=== PATIENT | male | born 1985 | race American Indian/Alaskan Native ===

== ENCOUNTER 2020-08-15 04:46 | Emergency (ER) | payer SELFPAY ==
--- NOTE | 2020-08-15 04:53 | Event Note ---
Date: 08/15/20 The patient was evaluated in the emergency department for symptoms described in the history of present illness. He/she was evaluated in the context of the global COVID-19 pandemic, which necessitated consideration that the patient might be at risk for infection with the virus that causes COVID-19. Institutional protocols and algorithms that pertain to the evaluation of patients at risk for COVID-19 are in a state of rapid change based on information released by regulatory bodies including the CDC and federal and state organizations. These policies and algorithms were followed during the patient's care in the emergency department. Please note that these policies, procedures and recommendations changed on a rapid basis. EMS documentation not available at time of chart dictation 34-year-old gentleman brought to the hospital by emergency medical services with a complaint of chest pain. Somewhat hypertensive in the field, but not tachycardic or hypoxic. Given nitroglycerin in the field. This improved symptoms. Patient resting comfortably down, in stretcher. Place on lpn cma, obtain EKG, x-ray the chest, appropriate laboratory studies, reassess.
--- NOTE | 2020-08-15 05:16 | XRay Report ---
XR chest 1V ap INDICATION / CLINICAL INFORMATION: chest pain COMPARISON: None available. FINDINGS: SUPPORT DEVICES: None. HEART / MEDIASTINUM: No significant abnormality. LUNGS / PLEURA: Lungs are clear. Costophrenic sulci are sharp. No pneumothorax. ADDITIONAL FINDINGS: No significant additional findings. IMPRESSION: 1. No acute findings. Signer Name: Yann Biswas MD Signed: 08/15/2020 5:12 AM Workstation Name: [id number]
[2020-08-15 05:38] LABS: Hematocrit 39.8 % (35.5-45.6); Hemoglobin 13.5 gm/dl (11.8-15.2); Mean Corpuscular HGB Conc 34 % (32-34); Mean Corpuscular Volume 88 fl (84-94); Platelet Count 216 K/mm3 (140-440); Red Blood Count 4.55 M/mm3 (3.65-5.03); Red Cell Distribution Width 14.4 % (13.2-15.2)
[2020-08-15 06:02] LABS: BUN/Creatinine Ratio 12; Blood Urea Nitrogen 13 mg/dL (9-20); Calcium 9.2 mg/dL (8.4-10.2); Hemolysis Index 3
[2020-08-15] MEDS ORDERED: MAGNESIUM SULFATE 2 GM/50 ML BAG IV ONE (06:52)
--- NOTE | 2020-08-15 07:19 | Emergency Department Report ---
HPI - General Chief Complaint: Chest Pain Time Seen by Provider: 08/15/20 06:52 - HPI HPI: Room 25 The patient is a 34-year-old male present with a chief complaint of chest pain. The patient states for the past 4 days he has had a constant substernal chest soreness. Patient states sometimes movement causes the pain. Patient admits to shortness of breath with the chest pain but denies nausea/vomiting or diaphoresis. Patient denies cough, fever or pleurisy. Patient denies any recent flights or long car trips. The patient states he is never had a stress test or cardiac catheterization ED Past Medical Hx - Past Medical History Previous Medical History?: Yes Hx Hypertension: Yes (noncompliant) Hx GERD: Yes Additional medical history: Anxiety - Surgical History Past Surgical History?: No - Family History Family history: no significant - Social History Smoking Status: Former Smoker (None x7 years) Substance Use Type: Alcohol (Occasional) - Medications Home Medications: Home Medications Medication Instructions Recorded Confirmed Last Taken Type Azithromycin [Zithromax Z-TIA] 0 mg PO DAILY #1 pack 02/08/16 Unknown Rx Cetirizine HCl [ZyrTEC] 10 mg PO DAILY #20 capsule 02/08/16 Unknown Rx predniSONE [Deltasone] 40 mg PO QDAY #10 tab 02/08/16 Unknown Rx Ibuprofen [Motrin 800 MG tab] 800 mg PO Q8HR PRN #20 tablet 08/15/20 Unknown Rx traMADoL [Ultram] 50 mg PO Q6HR PRN #14 tablet 08/15/20 Unknown Rx ED Review of Systems ROS: Stated complaint: CHEST PAIN Other details as noted in HPI Constitutional: denies: diaphoresis, fever Eyes: denies: eye pain ENT: denies: throat pain Respiratory: shortness of breath. denies: cough Cardiovascular: chest pain Endocrine: no symptoms reported Gastrointestinal: denies: nausea, vomiting Genitourinary: denies: dysuria Musculoskeletal: denies: back pain Neurological: denies: headache Physical Exam - Physical Exam Vital Signs: Vital Signs 08/15/20 08/15/20 08/15/20 04:57 05:00 05:01 Temperature 98.3 F Pulse Rate 61 66 63 Respiratory 11 L 12 10 L Rate Blood Pressure 154/103 154/103 O2 Sat by Pulse 99 99 98 Oximetry 03/08/15/20 08/15/20 05:15 05:31 05:45 Temperature Pulse Rate 63 57 L 66 Respiratory 12 10 L 11 L Rate Blood Pressure 170/107 154/103 143/97 O2 Sat by Pulse 99 99 98 Oximetry 08/15/20 08/15/20 08/15/20 06:01 06:15 06:31 Temperature Pulse Rate 58 L 64 63 Respiratory 13 11 L 14 Rate Blood Pressure 154/103 142/88 141/100 O2 Sat by Pulse 100 98 99 Oximetry 08/15/20 08/15/20 06:45 07:01 Temperature Pulse Rate 63 67 Respiratory 11 L 11 L Rate Blood Pressure 141/102 141/94 O2 Sat by Pulse 99 100 Oximetry Physical Exam: GENERAL: The patient is well-developed well-nourished male lying on stretcher not appearing to be in acute distress. [] HEENT: Normocephalic. Atraumatic. Extraocular motions are intact. Patient has moist mucous membranes. NECK: Supple. Trachea midline CHEST/LUNGS: Clear to auscultation. There is no respiratory distress noted. HEART/CARDIOVASCULAR: Regular. There is no tachycardia. There is no gallop rub or murmur. ABDOMEN: Abdomen is soft, nontender. Patient has normal bowel sounds. There is no abdominal distention. SKIN: There is no rash. There is no edema. There is no diaphoresis. NEURO: The patient is awake, alert, and oriented. The patient is cooperative. The patient has no focal neurologic deficits. The patient has normal speech MUSCULOSKELETAL: There is no evidence of acute injury. ED Course Vital Signs 08/15/20 08/15/20 08/15/20 04:57 05:00 05:01 Temperature 98.3 F Pulse Rate 61 66 63 Respiratory 11 L 12 10 L Rate Blood Pressure 154/103 154/103 O2 Sat by Pulse 99 99 98 Oximetry 08/15/20 08/15/20 08/15/20 05:15 05:31 05:45 Temperature Pulse Rate 63 57 L 66 Respiratory 12 10 L 11 L Rate Blood Pressure 170/107 154/103 143/97 O2 Sat by Pulse 99 99 98 Oximetry 08/15/20 08/15/20 08/15/20 06:01 06:15 06:31 Temperature Pulse Rate 58 L 64 63 Respiratory 13 11 L 14 Rate Blood Pressure 154/103 142/88 141/100 O2 Sat by Pulse 100 98 99 Oximetry 08/15/20 08/15/20 06:45 07:01 Temperature Pulse Rate 63 67 Respiratory 11 L 11 L Rate Blood Pressure 141/102 141/94 O2 Sat by Pulse 99 100 Oximetry ED Medical Decision Making - Lab Data Result diagrams: 08/15/20 05:06 08/15/20 05:06 Laboratory Tests 08/15/20 08/15/20 08/15/20 05:06 05:06 05:06 WBC 7.0 RBC 4.55 Hgb 13.5 Hct 39.8 MCV 88 MCH 30 MCHC 34 RDW 14.4 Plt Count 216 PT 13.1 INR 1.00 D-Dimer Sodium 139 Potassium 3.6 Chloride 103.2 Carbon Dioxide 29 Anion Gap 10 BUN 13 Creatinine 1.1 Estimated GFR > 60 BUN/Creatinine Ratio 12 Glucose 103 H Calcium 9.2 Magnesium 1.60 L Total Creatine Kinase 305 H Troponin T < 0.010 08/15/20 08/15/20 09:43 Unknown WBC RBC Hgb Hct MCV MCH MCHC RDW Plt Count PT INR D-Dimer 135.00 Sodium Potassium Chloride Carbon Dioxide Anion Gap BUN Creatinine Estimated GFR BUN/Creatinine Ratio Glucose Calcium Magnesium Total Creatine Kinase Troponin T < 0.010 - EKG Data -: EKG Interpreted by Me EKG shows normal: sinus rhythm Rate: normal - EKG Data When compared to previous EKG there are: previous EKG unavailable Interpretation: other (No ischemic changes seen) 08/15/20 09:20 EKG #2 performed at 08:04 unchanged. - Radiology Data Radiology results: report reviewed (Chest x-ray), image reviewed (Chest x-ray) interpreted by me: Chest x-ray-no focal infiltrates, no pneumothorax. No foreign body seen XR chest 1V ap INDICATION / CLINICAL INFORMATION: chest pain COMPARISON: None available. FINDINGS: SUPPORT DEVICES: None. HEART / MEDIASTINUM: No signi ficant abnormality. LUNGS / PLEURA: Lungs are clear. Costophrenic sulci are sharp. No pneumothorax. ADDITIONAL FINDINGS: No significant additional findings. IMPRESSION: 1. No acute findings. Signer Name: Yann Biswas MD Signed: 08/15/2020 4:12 AM Workstation Name: [id number] - Medical Decision Making Chest pain referral form faxed to [facility] - Differential Diagnosis ACS, PE, costochondritis, GERD Critical care attestation.: If time is entered above; I have spent that time in minutes in the direct care of this critically ill patient, excluding procedure time. ED Disposition Clinical Impression: Chest pain Disposition: TO HOME OR SELFCARE Is pt being admited?: No Does the pt Need Aspirin: No Condition: Stable Instructions: Nonspecific Chest Pain, Adult, Costochondritis Additional Instructions: Return to the emergency department should you develop worsening symptoms, inability to tolerate food or liquids, high fever or any other concerns Prescriptions: Ibuprofen [Motrin 800 MG tab] 800 mg PO Q8HR PRN #20 tablet PRN Reason: Pain, Moderate (4-6) traMADoL [Ultram] 50 mg PO Q6HR PRN #14 tablet PRN Reason: Pain Referrals: ESTHER YE MD [Staff Physician] - 3-5 Days () Time of Disposition: 11:36 Heart Score - HEART Score History: Slightly suspicious EKG: Normal Age: < 45 Risk factors: 1-2 risk factors Troponin: < normal limit HEART Score: 1
[2020-08-15 11:49] VITALS: BP 134/93
== END 2020-08-15 11:50 | disposition home or self-care (01) ==
LOC: ED 04:46
DX: R07.89 Other chest pain (principal); I10 Essential (primary) hypertension; K21.9 Gastro-esophageal reflux disease without esophagitis; F41.9 Anxiety disorder, unspecified; Z87.891 Personal history of nicotine dependence; Z79.899 Other long term (current) drug therapy; Z88.0 Allergy status to penicillin
CPT/HCPCS: 36415; 71045; 80048; 82550; 83735; 84484; 85027; 85379; 85610; 93005; 96365; 99284; J3475